=== PATIENT | female | born 1945 | race Caucasian/White ===

== ENCOUNTER → 2024-04-11 | Outpatient (REF) | payer MEDICARE | LOC: MRI 12:52 | PROVIDERS: ATTEND Internal Medicine | DX: M51.06 Intervertebral disc disorders with myelopathy, lumbar region (principal) | CPT/HCPCS: 72148 ==

== ENCOUNTER 2024-05-31 11:41 | Emergency (ER) | payer MEDICARE ==
[~2024-05-31] VITALS: Ht 172.7 cm; Wt 83.9 kg
[2024-05-31 11:45] VITALS: TEMP 98
[2024-05-31 12:17] LABS: BASOPHILS % 0.6 % (0.0-1.0); EOSINOPHILS # (AUTO) 0.1 (0.0-0.4); EOSINOPHILS % 2.1 % (0.0-6.0); HEMATOCRIT 35.8 % (34.2-44.1); HEMOGLOBIN 11.5 g/dL (12.0-16.0); LYMPHOCYTES # (AUTO) 1.6 (1.0-3.2); LYMPHOCYTES % 26.2 % (18.0-39.1); MEAN CORPUSCULAR HEMOGLOBIN 30.7 pg (28-32); MEAN CORPUSCULAR HGB CONC 32.1 g/dL (31-35); MEAN CORPUSCULAR VOLUME 95.5 fL (81-99); MONOCYTES # (AUTO) 0.6 (0.2-0.8); MONOCYTES % 9.1 % (4.4-11.3); NEUTROPHILS # (AUTO) 3.8 (2.1-6.9); NEUTROPHILS % 61.7 % (38.7-80.0); PLATELET COUNT 314 x10e3/uL (140-360); RED BLOOD COUNT 3.75 x10e6/uL (3.6-5.1); RED CELL DISTRIBUTION WIDTH 13.4 % (11.7-14.4); WHITE BLOOD COUNT 6.23 x10e3/uL (4.8-10.8)
[2024-05-31 12:37] LABS: ALBUMIN 3.9 g/dL (3.5-5.0); ALBUMIN/GLOBULIN RATIO 1.3 (0.8-2.0); ANION GAP 14.1 mmol/L (8-16); BILIRUBIN,TOTAL 0.3 mg/dL (0.2-1.2); CALCIUM 9.1 mg/dL (8.4-10.2); CREATININE, SERUM 0.75 mg/dL (0.57-1.11); POTASSIUM 4.1 mmol/L (3.5-5.1)
[2024-05-31 12:55] VITALS: PULSE 75; RESP 20; O2SAT 94
[2024-05-31] MEDS ORDERED: KETOROLAC TROMETHAMINE 30 MG/ML VIAL IV STA (13:11)
== END 2024-05-31 13:14 | disposition home or self-care (01) ==
LOC: ER 11:55
DX: R06.02 Shortness of breath (principal); M54.9 Dorsalgia, unspecified; G89.29 Other chronic pain; R42 Dizziness and giddiness
CPT/HCPCS: 36415; 71045; 80053; 84484; 85025; 93005; 99284